=== PATIENT | male | born 1990 | race Caucasian/White ===

== ENCOUNTER 2017-02-27 13:55 | Emergency (ER) | payer SELFPAY ==
[~2017-02-27] VITALS: Ht 180.3 cm; Wt 108.7 kg
[2017-02-27 14:15] VITALS: BP 132/84; PULSE 89; RESP 16; TEMP 98.4; O2SAT 100
--- NOTE | 2017-02-27 14:51 | PD ---
HPI Chief Complaint: Back/ Neck Pain or Injury Time Seen by Provider: 14:51 Travel History International Travel<30 days: No Contact w/Intl Traveler<30days: No Traveled to known affect area: No History of Present Illness HPI 26-year-old male presents to the emergency department for evaluation of low back pain radiating to the left leg for 5 days. The patient states that he has a history of low back pain secondary to multiple herniated disks status post spinal fusion. The patient states that 4 years ago when this injury occurred he had a spinal fusion from L3 to S1. States that he has followed up with his neurosurgeon and been told that he had a "unsuccessful fusion" and they're currently investigating whether he should have a spinal implant or another surgery to correct this issue. The patient states that his neurosurgeon is in [place], he lives in [place] and is here visiting his mother, has been here for the past month. States that he is in the process of trying to transition to living down here however his back surgery and injury as all handled through [employer] in [place]. The patient is here today because for the past 5 days he said worsening lower back pain in his lumbar region with sharp shooting pains to his left leg. He denies any new injury or trauma to his back. States that he has never had shooting pain to the left leg until the last several days , he has had radiculopathy in the right leg but never in the left. The patient states he also became concerned as the last 2 days he has had difficulty with urination. States that he feels as though he needs to urinate and then nothing comes out. He does describe paresthesias of the left leg. He denies any fever , chills, nausea, vomiting, numbness, saddle anesthesia, bowel incontinence. States he has been taking ibuprofen for pain with minimal improvement of symptoms. No other complaints. [facility] Past Medical History Medical History: Denies Significant Hx Past Surgical History Other Surgery: Yes (HERNIA REPAIR ) Social History Alcohol Use: No Tobacco Use: Yes (/2 PPD) Allergies-Medications (Allergen,Severity, Reaction): Coded Allergies: Acetaminophen (Verified Allergy, Unknown, 02/27/17) Reported Meds & Prescriptions Reported Meds & Active Scripts Active No Active Prescriptions or Reported Medications Review of Systems Except as stated in HPI: all other systems reviewed are Neg Physical Exam Narrative GENERAL: Well-nourished and well-developed pleasant male patient in no acute distress however does appear to be in moderate discomfort. SKIN: Warm and dry. HEAD: Normocephalic and atraumatic. EYES: No injection, drainage, or hyphema noted. PERRLA. EOMI. ENT: No nasal drainage noted. Oropharynx is clear. NECK: Supple and the trachea is midline. CARDIOVASCULAR: Regular rate and rhythm. RESPIRATORY: Breath sounds are equal bilaterally with no accessory muscle use, wheezing, rhonchi, or crackles. GASTROINTESTINAL: Abdomen is soft, non-tender, and nondistended. MUSCULOSKELETAL: Left leg SLR positive. No obvious deformities, swelling, cyanosis, or ecchymosis is present throughout the upper and lower extremities. Patient has full range of motion without any signs of neurovascular compromise. Strength 5/5 upper and lower extremities and equal bilaterally. BACK: Large surgical scar extending down lumbar spine. Patient has tenderness to palpation in the middle of the scar, around L5. No obvious deformities or crepitus noted throughout the thoracic and lumbar vertebrae. NEUROLOGICAL: Awake, alert, and oriented. Normal speech and gait. Cranial nerves are grossly intact. Data Data Last Documented VS Vital Signs Date Time Temp Pulse Resp B/P Pulse Ox O2 Delivery O2 Flow Rate FiO2 02/27/17 17:38 88 16 02/27/17 17:35 98 Room Air 02/27/17 14:15 98.4 132/84 Orders Oxycodone (Roxicodone) (02/27/17 15:00) Basic Metabolic Panel (Bmp) (02/27/17 15:36) Complete Blood Count With Diff (02/27/17 15:36) Iv Access Insert/Monitor (02/27/17 15:36) Ecg Monitoring (02/27/17 15:36) Oximetry (02/27/17 15:36) Sodium Chlor 0.9% 1000 Ml Inj (Ns 1000 M (02/27/17 15:36) Sodium Chloride 0.9% Flush (Ns Flush) (02/27/17 15:45) Mri L Spine W&W/O Contrast (02/27/17 ) Gadodiamide Pf Inj (Omniscan Pf Inj) (02/27/17 17:04) Labs Laboratory Tests Test 02/27/17 02/27/17 16:10 16:20 White Blood Count 7.9 TH/MM3 Red Blood Count 5.48 MIL/MM3 Hemoglobin 15.5 GM/DL Hematocrit 46.5 % Mean Corpuscular Volume 84.8 FL Mean Corpuscular Hemoglobin 28.4 PG Mean Corpuscular Hemoglobin 33.5 % Concent Red Cell Distribution Width 13.3 % Platelet Count 264 TH/MM3 Mean Platelet Volume 8.9 FL Neutrophils (%) (Auto) 59.3 % Lymphocytes (%) (Auto) 29.5 % Monocytes (%) (Auto) 6.3 % Eosinophils (%) (Auto) 0.9 % Basophils (%) (Auto) 4.0 % Neutrophils # (Auto) 4.7 TH/MM3 Lymphocytes # (Auto) 2.3 TH/MM3 Monocytes # (Auto) 0.5 TH/MM3 Eosinophils # (Auto) 0.1 TH/MM3 Basophils # (Auto) 0.3 TH/MM3 CBC Comment DIFF FINAL Differential Comment Sodium Level 139 MEQ/L Potassium Level 4.0 MEQ/L Chloride Level 107 MEQ/L Carbon Dioxide Level 26.1 MEQ/L Anion Gap 6 MEQ/L Blood Urea Nitrogen 13 MG/DL Creatinine 0.86 MG/DL Estimat Glomerular Filtration 109 ML/MIN Rate Random Glucose 93 MG/DL Calcium Level 8.5 MG/DL MDM Medical Decision Making Medical Screen Exam Complete: Yes Emergency Medical Condition: Yes Differential Diagnosis Acute on chronic low back pain versus lumbar radiculopathy versus spinal stenosis versus cauda equina Narrative Course 26-year-old male with a history of low back pain status post spinal fusion presents to the emergency department for evaluation of low back pain radiating to the left leg with symptoms of urinary retention. Patient is afebrile, vital signs are stable. No new injury or trauma to the back. I discussed the case with my attending physician Dr. Arechiga. Due to the patient's symptoms and history we'll do an MRI. CBC and BMP are unremarkable. MRI of the lumbar spine with and without contrast shows slight scarring on the right side abutting the exiting nerve roots at L5-S1 level without any significant thecal sac stenosis. Imaging is reassuring, does not show any emergent spinal cord compromise. He is reporting improvement of symptoms after oxycodone 5 mg administered. The patient is allergic to Tylenol. He is advised to continue taking ibuprofen at home and will give him a short prescription for oxycodone. Discussed supportive care. Advised follow-up with his PCP. Patient verbalizes understanding and agreement with treatment plan. Diagnosis Primary Impression: Acute exacerbation of chronic low back pain Additional Impression: Lumbar radiculopathy Referrals: Primary Care Physician Patient Instructions: Acute Low Back Pain (ED), General Instructions, Lumbar Radiculopathy (ED) Additional Instructions: Apply ice or heat to help alleviate symptoms. Perform gentle stretches. Take medications as prescribed with food and a full glass of water. Do not take oxycodone with alcohol or while driving. Follow-up with your Primary Care Physician. Return to the ED for any acute worsening of symptoms. Med/Other Pt SpecificInfo: Prescription(s) given Scripts Oxycodone 5 Mg Cap5 Mg PO Q6H PRN (PAIN GREATER THAN 6) #20 CAP Ref 0 Prov:Jj Horton MD 02/27/17 Disposition: 01 DISCHARGE HOME Condition: Stable Berta Pantoja Feb 27, 2017 14:51
[2017-02-27] MEDS ORDERED: SODIUM CHLOR 0.9% 1000 ML INJ 1,000 ML IV SCH (15:36)
[2017-02-27] MEDS ORDERED: SODIUM CHLORIDE 0.9% FLUSH 10 ML FLUSH IV FLUSH PRN (15:45)
[2017-02-27 16:23] LABS: AUTOMATED NEUTROPHIL # 4.7 TH/MM3 (1.8-7.7); BASOPHIL # 0.3 TH/MM3 (0-0.2); EOSINOPHIL # 0.1 TH/MM3 (0-0.4); EOSINOPHIL % 0.9 % (0.0-4.0); HEMATOCRIT 46.5 % (39.0-51.0); HEMO FLAGS DIFF FINAL; LYMPH % 29.5 % (9.0-44.0); LYMPHOCYTE # 2.3 TH/MM3 (1.0-4.8); MEAN CELL VOLUME 84.8 FL (80.0-100.0); MEAN CORPUSCULAR HEMOGLOBIN 28.4 PG (27.0-34.0); MEAN CORPUSCULAR HGB CONC 33.5 % (32.0-36.0); MONO % 6.3 % (0.0-8.0); NEUT % 59.3 % (16.0-70.0); PLATELET COUNT 264 TH/MM3 (150-450); RED BLOOD COUNT 5.48 MIL/MM3 (4.50-5.90); RED CELL DISTRIBUTION WIDTH 13.3 % (11.6-17.2); WHITE BLOOD COUNT 7.9 TH/MM3 (4.0-11.0)
[2017-02-27 16:48] LABS: BICARBONATE 26.1 MEQ/L (21.0-32.0)
[2017-02-27] MEDS ORDERED: GADODIAMIDE PF 287 MG/ML 20 ML VIAL (for RAD MRI) IV ONE (17:04)
[2017-02-27 17:35] VITALS: O2SAT 98
--- NOTE | 2017-02-27 17:47 | RADHPO ---
EXAM DATE/TIME: 02/27/2017 16:32 [facility] COMPARISON: No previous studies available for comparison. INDICATIONS : Pain. Lower back pain radiating down left leg with urinary retention. CONTRAST: 20 cc Omniscan (gadodiamide) IV MEDICAL HISTORY : None. SURGICAL HISTORY : Fusion, lumbar. Hernia repair. ENCOUNTER: Initial ACUITY: 3 day PAIN SCORE: 7/10 LOCATION: Lower back. TECHNIQUE: Multiplanar multisequence MRI of the lumbar spine was performed with and without contrast. FINDINGS: The marrow signal appears intact except for magnetic susceptibility artifact related to surgical hard kaiser. No significant compression deformities, spondylolisis, or spondylolesthesis is seen. Surgical screws traverse the bodies of L4, L5, and S1 with posterior stabilization hardware in place. L1-L2: No appreciable compromise to the thecal sac, or the exiting nerve roots is seen. The neural foramina and lateral recesses are patent bilaterally. L2-L3: No appreciable compromise to the thecal sac, or the exiting nerve roots is seen. The neural foramina and lateral recesses are patent bilaterally. L3-L4: No appreciable compromise to the thecal sac, or the exiting nerve roots is seen. The neural foramina and lateral recesses are patent bilaterally. L4-L5: No appreciable compromise to the thecal sac, or the exiting nerve roots is seen. The neural foramina and lateral recesses are patent bilaterally. L5-S1: Slight soft tissue density is present in the right anterior extradural space partially extendi ng into the right neural foramen demonstrating slight enhancement characteristic of postsurgical scar ring slightly abutting the exiting nerve roots. There is no thecal sac stenosis. CONCLUSION: Slight scarring on the right side abutting the exiting nerve roots at L5-S1 level wit hout any significant thecal sac stenosis. Elia Clancy MD on February 27, 2017 at 17:41 Board Certified Radiologist. This report was verified electronically.
[2017-02-27] MEDS ORDERED: OXYC1CAP PO (17:59)
== END 2017-02-27 18:13 | disposition home or self-care (01) ==
LOC: PHEFT 13:55
DX: M54.5 Low back pain (principal); G89.29 Other chronic pain; M54.16 Radiculopathy, lumbar region; F17.210 Nicotine dependence, cigarettes, uncomplicated; Z98.1 Arthrodesis status
CPT/HCPCS: 72158; 80048; 85025; 96360; 96361; 99284; A9579; J7030